=== PATIENT | female | born 1940 ===

== ENCOUNTER 2017-03-07 13:32 | Emergency (ER) | payer SELFPAY ==
[~2017-03-07] VITALS: Ht 160 cm; Wt 56.8 kg
[2017-03-07 13:35] VITALS: BP 136/71; PULSE 59; RESP 10; O2SAT 98
--- NOTE | 2017-03-07 14:21 | ED.REPORT ---
HPI-Allergic Reaction Date of Service Mar 07, 2017 ED Provider: History of Present Illness: not in room at time listed below. lobby checked, not there. Nursing Notes Stated Complaint: POSSIBLE ALLERGIC REACTION Chief Complaint: Allergic Reaction Allergies: Uncoded Allergies: PETROCHEMICALS (Allergy, Intermediate, 03/07/17) General Time Seen by MD: 14:21 Physical Exam Initial Vital Signs Vital Signs (First) Date Time Temp Pulse Resp B/P Pulse Ox O2 Delivery O2 Flow Rate FiO2 03/07/17 13:35 36.6 59 10 136/71 98 Room Air Teodora Yousif Mar 07, 2017 14:21
== END 2017-03-07 14:00 | disposition left against medical advice (07) ==
LOC: SED 13:32
DX: T78.40XA Allergy, unspecified, initial encounter (principal); X58.XXXA Exposure to other specified factors, initial encounter; Y93.89 Activity, other specified; Y92.9 Unspecified place or not applicable; Y99.8 Other external cause status; Z53.29 Procedure and treatment not carried out because of patient's decision for other reasons